=== PATIENT | male | born 1970 | race Two or more races ===

== ENCOUNTER 2017-10-13 16:37 | Emergency (ER) | payer MEDICARE, MEDICAID ==
[~2017-10-13] VITALS: Ht 167.6 cm; Wt 77.0 kg
[~2017-10-13 16:37] MED LIST: DARU400T PO; DOCU100C40 PO; EMTR1TAB PO; FLUC100T PO; PER10325T PO; RALT400T PO; RITO100C7 PO
[2017-10-13 16:41] VITALS: BP 170/107
== END 2017-10-13 18:04 | disposition left against medical advice (07) ==
LOC: ER 16:38
DX: K08.89 Other specified disorders of teeth and supporting structures (principal); Z53.21 Procedure and treatment not carried out due to patient leaving prior to being seen by health care provider

== ENCOUNTER 2021-08-21 23:52 | Emergency (ER) | payer MEDICAID, MEDICARE ==
[~2021-08-21] VITALS: Ht 170.2 cm; Wt 85.1 kg
[2021-08-22 00:08] VITALS: BP 196/127
[2021-08-22 00:59] LABS: BASOPHILS % (AUTO) 0.7 % (0-1); EOSINOPHILS # (AUTO) 0.2 X10'3 (0-0.9); HEMATOCRIT 44.3 % (42.0-52.0); HEMOGLOBIN 15.3 g/dl (14.0-17.9); LYMPHOCYTES # (AUTO) 2.4 X10'3 (1.1-4.8); LYMPHOCYTES % (AUTO) 39.5 % (21-51); MEAN CORPUSCULAR HEMOGLOBIN 32.4 PG (27.0-31.0); MEAN CORPUSCULAR HGB CONC 34.5 g/dL (33.0-36.5); MEAN CORPUSCULAR VOLUME 94.1 FL (78-98); MEAN PLATELET VOLUME 9.4 FL (7.4-10.4); MONOCYTES # (AUTO) 0.7 X10'3 (0-0.9); MONOCYTES % (AUTO) 10.9 % (2-12); NEUTROPHILS # (AUTO) 2.8 X10'3 (1.8-7.7); NEUTROPHILS % (AUTO) 45.9 % (42-75); PLATELET COUNT 234 X10'3 (140-440); RED CELL DISTRIBUTION WIDTH 13.4 % (11.5-14.5); WHITE BLOOD COUNT 6.2 X10'3 (4.5-11.0)
[2021-08-22 01:14] LABS: ALANINE AMINOTRANSFERASE 52 U/L (12-78); ALBUMIN/GLOBULIN RATIO 0.9 (1.1-1.5); ALKALINE PHOSPHATASE 69 IU/L (46-116); ANION GAP 12 (8-16); ASPARTATE AMINO TRANSFERASE 23 U/L (10-37); BILIRUBIN,TOTAL 0.7 MG/DL (0.1-1.0); BLOOD UREA NITROGEN 14 MG/DL (7-18); BUN/CREATININE RATIO 14.3 (5.4-32.0); CALCIUM 8.6 MG/DL (8.5-10.1); CHLORIDE 103 MMOL/L (99-107); CREATININE 0.98 MG/DL (0.60-1.10); GLUCOSE 113 MG/DL (70-104); POTASSIUM 3.4 MMOL/L (3.5-5.1); SODIUM 141 MMOL/L (135-145); TOTAL CARBON DIOXIDE 26.3 MMOL/L (24-32); TOTAL PROTEIN 8.4 G/DL (6.4-8.2); eGFR 81 ML/MIN
[2021-08-22] MEDS ORDERED: iohexol 350MG/ML 100ml bottle IV ONE (02:35)
[2021-08-22 02:49] LABS: APTT 28 SECONDS (22-32)
[2021-08-22] MEDS ORDERED: aspirin 325mg tablet PO ONE (03:35)
--- NOTE | 2021-08-22 04:15 | NUR ---
not in lobby
== END 2021-08-22 05:23 | disposition left against medical advice (07) ==
LOC: ER 23:53
DX: I63.9 Cerebral infarction, unspecified (principal); R42 Dizziness and giddiness; R00.2 Palpitations; R07.89 Other chest pain; R20.0 Anesthesia of skin; Z98.890 Other specified postprocedural states; Z72.89 Other problems related to lifestyle; Z79.899 Other long term (current) drug therapy
CPT/HCPCS: 36415; 71045; 80053; 83880; 84484; 85025; 85610; 85730; 93005; 99285; Q9967

== ENCOUNTER 2024-06-21 15:24 | Emergency (ER) | payer OTHER, MEDICARE ==
[~2024-06-21] VITALS: Ht 177.8 cm; Wt 91.6 kg
[~2024-06-21 15:24] MED LIST changes: +calcium chloride 100 MG/1 ML inj IV ONE; +epiNEPHrine 0.1mg/ml 10ml syringe ONE
[2024-06-21] MEDS ORDERED: normal saline 1000ml 1,000 ML IV ONE ×2 (15:30)
[2024-06-21 15:36] VITALS: BP 71/49
[2024-06-21 15:47] LABS: ABG BASE EXCESS -26.5 mmol/L (-2.0-3.0); ABG HCO3 5.9 mmol/L (21.0-28.0); ABG OXYGEN SATURATION 99.6 % (94.0-98.0); ABG PCO2 (T) 24.8 mmHg (35.0-48.0); ABG PH (T) 6.955 (7.350-7.450); ABG PO2 (T) 387.9 mmHg (83.0-108.0); ALLEN'S TEST POSITIVE; FCOHb 0.3 % (0.5-1.5); FHHb 0.4 % (0.0-5.0); FLOW 15 L/min; FMetHb 0.1 % (0.0-1.5); FO2Hb 99.2 % (94.0-98.0); MODE NRB; PATIENT TEMPERATURE 31.5; TOTAL HEMOGLOBIN 14.4 G/dl (13.5-17.5)
[2024-06-21 15:48] LABS: BASOPHILS % (AUTO) 0.3 % (0-1); EOSINOPHILS % (AUTO) 0.1 % (0-6); HEMATOCRIT 59.8 % (42.0-52.0); HEMOGLOBIN 14.8 g/dl (14.0-17.9); LYMPHOCYTES # (AUTO) 0.7 X10'3 (1.1-4.8); MEAN CORPUSCULAR HEMOGLOBIN 33.7 PG (27.0-31.0); MEAN CORPUSCULAR HGB CONC 24.8 g/dL (33.0-36.5); MEAN CORPUSCULAR VOLUME 135.5 FL (78-98); MONOCYTES % (AUTO) 7.9 % (2-12); NEUTROPHILS # (AUTO) 11.5 X10'3 (1.8-7.7); NEUTROPHILS % (AUTO) 86.7 % (42-75); PLATELET COUNT 220 X10'3 (140-440); RED BLOOD COUNT 4.41 X10'6 (4.70-6.10); WHITE BLOOD COUNT 13.2 X10'3 (4.5-11.0)
[2024-06-21 16:01] LABS: BILIRUBIN,URINE NEGATIVE (Neg); CLARITY,URINE CLEAR (Clear); COLOR,URINE YELLOW (Yellow); GLUCOSE, URINE >=1000 mg/dl (Neg); KETONES,URINE NEGATIVE (Neg); LEUKOCYTE ESTERASE ,URINE NEGATIVE (Neg); NITRITES, URINE NEGATIVE (Neg); OCCULT BLOOD,URINE MODERATE (Neg); PH,URINE 5.5 (4.8-8.0); PROTEIN,URINE NEGATIVE (Neg); UROBILINOGEN,URINE 0.2 E.U/dL (0.2-1.0)
[2024-06-21 16:02] LABS: UA COLLECTION TYPE FOLEY CATH
[2024-06-21 16:08] LABS: BACTERIA,URINE NONE SEEN /HPF (Neg); SQUAMOUS EPITHELIAL CELL,UR FEW /LPF (FEW); WBC,URINE NONE SEEN /HPF (0-4)
[2024-06-21 16:21] LABS: ALBUMIN 2.6 G/DL (3.4-5.0); ANION GAP 30 (8-16); BLOOD UREA NITROGEN 63 MG/DL (7-18); BUN/CREATININE RATIO 15.8 (10.0-20.0); CALCIUM 9.5 MG/DL (8.5-10.1); CHLORIDE 96 MMOL/L (99-107); CREATININE 3.98 MG/DL (0.60-1.10); SODIUM 136 MMOL/L (135-145); eCRCL 22 ML/MIN; eGFR 16 ML/MIN
[2024-06-21 16:28] LABS: POTASSIUM 1.2 MMOL/L (3.5-5.1)
[2024-06-21 16:30] LABS: TOTAL CARBON DIOXIDE 10.2 MMOL/L (24-32)
[2024-06-21] MEDS ORDERED: potassium CL 10mEq/100ml bag 100 ML IV ONE (16:31)
[2024-06-21] MEDS ORDERED: POTASSIUM CL 10 MEQ/100 ML IV ONE ×2 (16:33→17:04)
[2024-06-21] MEDS ORDERED: insulin regular, human 10 units/0.1 ml syringe ONE ×2 (16:50→17:38)
[2024-06-21] MEDS ORDERED: vasopressin inj. 40 UNIT in normal saline 50ml IV soln 38 ML IV SCH (16:55)
[2024-06-21 17:09] LABS: GLUCOSE 1924 MG/DL (70-104)
[2024-06-21 17:13] VITALS: PULSE 50; RESP 13; O2SAT 87
[2024-06-21 17:21] LABS: LACTIC SEPSIS 16.4 MMOL/L (0.4-2.0)
[2024-06-21 17:36] LABS: TOTAL CELLS COUNTED 100
[2024-06-21 17:37] LABS: LARGE PLATELETS FEW; PLATELET ESTIMATE NORMAL
[2024-06-21 17:46] LABS: ABG BASE EXCESS -22.4 mmol/L (-2.0-3.0); ABG HCO3 12.5 mmol/L (21.0-28.0); ABG OXYGEN SATURATION 84.1 % (94.0-98.0); ABG PCO2 (T) 63.5 mmHg (35.0-48.0); ABG PH (T) 6.869 (7.350-7.450); ABG PO2 (T) 57.3 mmHg (83.0-108.0); FCOHb 0.2 % (0.5-1.5); FHHb 15.8 % (0.0-5.0); FLOW 15 L/min; FMetHb 0.3 % (0.0-1.5); FO2Hb 83.7 % (94.0-98.0); MODE RESUS BAG; PATIENT TEMPERATURE 31.7; TOTAL HEMOGLOBIN 11.8 G/dl (13.5-17.5)
[2024-06-21] MEDS ORDERED: CefTRIAXone 2gm/D5W 50ml BAG 50 ML IV ONE (18:10)
[2024-06-21 18:20] LABS: ALANINE AMINOTRANSFERASE 247 U/L (12-78); ALBUMIN/GLOBULIN RATIO 0.4 (1.1-1.5); ALKALINE PHOSPHATASE 91 IU/L (46-116); ASPARTATE AMINO TRANSFERASE 402 U/L (10-37); BILIRUBIN,TOTAL 0.4 MG/DL (0.1-1.0); BLOOD UREA NITROGEN 45 MG/DL (7-18); BUN/CREATININE RATIO 16.2 (10.0-20.0); CALCIUM 8.4 MG/DL (8.5-10.1); CREATININE 2.78 MG/DL (0.60-1.10); TOTAL CARBON DIOXIDE 16.1 MMOL/L (24-32); TOTAL PROTEIN 3.4 G/DL (6.4-8.2); eCRCL 32 ML/MIN; eGFR 24 ML/MIN
[2024-06-21 18:35] LABS: ISTAT ANION GAP 21 (8-12); ISTAT BUN 43 mg/dL (7-18); ISTAT CL 125 mmol/L (99-107); ISTAT CREATININE 1.9 mg/dL (0.8-1.3); ISTAT GLUCOSE > 600 mg/dL (70-104); ISTAT HGB 8.5 g/dl (14.0-17.9); ISTAT Hct 25 %PCV (42-52); ISTAT IONIZED CALCIUM 1.32 mmol/L (1.03-1.32); ISTAT K < 2.0 mmol/L (3.5-5.1); ISTAT NA 162 mmol/L (135-145); ISTAT TOTAL CO2 16 mmol/L (24-32); ISTAT eGFR 37 ML/MIN; POC BUN/CREATININE RATIO 22.6 (5.4-32.0)
[2024-06-21 18:54] LABS: HEMATOCRIT 30.7 % (42.0-52.0); HEMOGLOBIN 10.2 g/dl (14.0-17.9); MEAN CORPUSCULAR HEMOGLOBIN 33.5 PG (27.0-31.0); MEAN CORPUSCULAR HGB CONC 33.2 g/dL (33.0-36.5); RED BLOOD COUNT 3.03 X10'6 (4.70-6.10); RED CELL DISTRIBUTION WIDTH 12.7 % (11.5-14.5)
[2024-06-21 18:58] LABS: GLUCOSE 1330 MG/DL (70-104)
[2024-06-21 18:59] LABS: ANION GAP -16 (8-16); POTASSIUM 2.1 MMOL/L (3.5-5.1); SODIUM 159 MMOL/L (135-145)
[2024-06-21 19:00] LABS: CHLORIDE 159 MMOL/L (99-107)
[2024-06-21] MEDS ORDERED: adenosine 3mg/ml 2ml vial IV ONE (19:00)
[2024-06-21 19:09] LABS: MEAN PLATELET VOLUME 12.8 FL (7.4-10.4); PLATELET COUNT 117 X10'3 (140-440)
[2024-06-21 19:10] LABS: BASOPHILS % (AUTO) 0.2 % (0-1); EOSINOPHILS % (AUTO) 0.3 % (0-6); LYMPHOCYTES % (AUTO) 9.2 % (21-51); MONOCYTES # (AUTO) 0.2 X10'3 (0-0.9); MONOCYTES % (AUTO) 1.7 % (2-12); NEUTROPHILS # (AUTO) 9.7 X10'3 (1.8-7.7); NEUTROPHILS % (AUTO) 88.6 % (42-75)
[2024-06-22 11:24] LABS: ISTAT ANION GAP 21 (8-12); ISTAT BUN 47 mg/dL (7-18); ISTAT CL 121 mmol/L (99-107); ISTAT CREATININE 2.1 mg/dL (0.8-1.3); ISTAT GLUCOSE > 600 mg/dL (70-104); ISTAT HGB 9.9 g/dl (14.0-17.9); ISTAT Hct 29 %PCV (42-52); ISTAT IONIZED CALCIUM 1.41 mmol/L (1.03-1.32); ISTAT K < 2.0 mmol/L (3.5-5.1); ISTAT NA 161 mmol/L (135-145); ISTAT TOTAL CO2 19 mmol/L (24-32); ISTAT eGFR 33 ML/MIN; POC BUN/CREATININE RATIO 22.4 (5.4-32.0)
[2024-06-22 11:24] LABS: ISTAT ANION GAP 22 (8-12); ISTAT BUN 45 mg/dL (7-18); ISTAT CL 116 mmol/L (99-107); ISTAT CREATININE 2.3 mg/dL (0.8-1.3); ISTAT GLUCOSE > 600 mg/dL (70-104); ISTAT HGB 9.5 g/dl (14.0-17.9); ISTAT Hct 28 %PCV (42-52); ISTAT IONIZED CALCIUM 1.64 mmol/L (1.03-1.32); ISTAT K < 2.0 mmol/L (3.5-5.1); ISTAT NA 154 mmol/L (135-145); ISTAT TOTAL CO2 16 mmol/L (24-32); ISTAT eGFR 30 ML/MIN; POC BUN/CREATININE RATIO 19.6 (5.4-32.0)
[2024-06-22 11:27] LABS: ISTAT ANION GAP 23 (8-12); ISTAT BUN 50 mg/dL (7-18); ISTAT CL 111 mmol/L (99-107); ISTAT CREATININE 2.5 mg/dL (0.8-1.3); ISTAT GLUCOSE > 600 mg/dL (70-104); ISTAT HGB 11.6 g/dl (14.0-17.9); ISTAT Hct 34 %PCV (42-52); ISTAT IONIZED CALCIUM 1.96 mmol/L (1.03-1.32); ISTAT K < 2.0 mmol/L (3.5-5.1); ISTAT NA 152 mmol/L (135-145); ISTAT TOTAL CO2 18 mmol/L (24-32); ISTAT eGFR 27 ML/MIN
[2024-06-25 17:09] LABS: HIV LOG 10 1.778 (.); HIV-1 RNA by PCR 60 copies/mL (.)
== END 2024-06-22 02:54 ==
LOC: ER 15:24
DX: E11.11 Type 2 diabetes mellitus with ketoacidosis with coma (principal); I46.9 Cardiac arrest, cause unspecified; R07.89 Other chest pain
CPT/HCPCS: 31500; 36415; 36556; 36600; 36620; 71045; 80047; 80048; 80053; 81001; 82140; 82803; 82948; 83605; 84145; 84484; 85007; 85018; 85025; 86885; 86900; 86901; 87040; 87535; 92950; 93005; 99291; 99292; J0153; J0171; J0461; J1815; J1940; J3475; J3480; J3490; J7030; 99285; A6258; A6449; C1751; C1758